=== PATIENT | female | born 1965 | race African-American/Black ===

== ENCOUNTER 2024-02-13 20:29 | Emergency (ER) | payer SELFPAY ==
--- NOTE | 2024-02-13 22:12 | RAD REPORT ---
EXAM DESCRIPTION: Carmine Single View02/13/2024 10:05 pm CLINICAL HISTORY: Hypertension COMPARISON: none FINDINGS: The lungs appear clear of acute infiltrate. The heart is normal size IMPRESSION: No acute abnormalities displayed
[2024-02-13 22:58] LABS: Absolute Lymphocytes (CBC) 1.8 K/uL (0.7-4.9); Absolute Monocytes 0.4 K/uL (0.1-1.3); Absolute Neutrophil 3.1 K/uL (1.8-8.0); Basophils % 0.4 % (0-1.3); Eosinophils % 0.7 % (0-4.4); Hematocrit 36.2 % (36.0-45.0); Hemoglobin 11.8 g/dL (12.0-15.0); Lymphocytes % 33.1 % (15.3-44.8); MCH 28.6 pg (27.0-35.0); MCHC 32.5 g/dL (32.0-36.0); MCV 87.8 fL (80-100); MPV 8.3 fL (7.6-11.3); Monocytes % 7.8 % (3.3-12.3); Platelets 264 thou/uL (152-406); RBC Red Blood Cell Count 4.12 M/uL (3.86-4.86); Red Cell Distribution Width 13.6 % (12.1-15.2)
[2024-02-13 23:05] LABS: Protime INR 1.09
[2024-02-13 23:19] LABS: Anion Gap 5.8 mEq/L (5.0-15.0); Potassium 3.8 mEq/L (3.5-5.1); Troponin High Sensitivity 3.3 pg/mL (<58.9)
[2024-02-13] MEDS ORDERED: METOPROLOL TAR 25 MG TAB ONE (23:59)
[2024-02-14] MEDS ORDERED: ASPIRIN 81 MG CHEWABLE TABLET ONE
--- NOTE | 2024-02-14 00:21 | EDPHYS ---
Physician Documentation [facility] Name: Tonia Leija Age: 58 yrs Sex: Female : 1965 Arrival Date: 02/13/2024 Time: 20:29 Bed 24 Private MD: DANY Physician Josué Mortensen HPI: 02/12 21:50 This 58 yrs old Black Female presents to ER via Ambulatory with complaints of High cp Blood Pressure. 21:50 The patient has elevated blood pressure and discovered this at home, with a home cp device. Onset: The symptoms/episode began/occurred 15 day(s) ago. Associated signs and symptoms: Pertinent negatives: chest pain, dizziness, headache, visual changes, vomiting, weakness. Historical: - Allergies: 20:54 No Known Allergies; al5 - Home Meds: 20:54 None [Active]; al5 - PMHx: 20:54 None; al5 - PSHx: 20:54 None; al5 - Immunization history:: Adult Immunizations up to date. - Infectious Disease History:: Denies. - Social history:: Smoking status: Patient denies any tobacco usage or history of. ROS: 21:55 Constitutional: HX per HPI cp 21:55 Eyes: Negative for visual disturbance, cp 21:55 Cardiovascular: Negative for chest pain, edema, palpitations, 21:55 Respiratory: Negative for cough, shortness of breath, wheezing, 21:55 Abdomen/GI: Negative for abdominal pain, vomiting, diarrhea, constipation, 21:55 Neuro: Negative for altered mental status, headache, numbness, syncope, near syncope, weakness, 21:55 All other systems are negative, Exam: 21:59 Constitutional: The patient appears in no acute distress, alert, awake, comfortable, cp non-diaphoretic, non-toxic, well developed, well nourished, 21:59 Head/Face: Normocephalic, atraumatic. cp 21:59 Eyes: Periorbital structures: appear normal, Pupils: equal, round, and reactive to light and accomodation, Extraocular movements: intact throughout, Sclera: no appreciated abnormality, Lids and lashes: appear normal, bilaterally, 21:59 ENT: External ear(s): are unremarkable, Nose: is normal, Mouth: Lips: moist, Oral mucosa: pink and intact, moist, Posterior pharynx: is normal, airway is patent, no erythema, no exudate, 21:59 Neck: ROM/movement: is normal, is supple, without pain, no range of motions limitations, 21:59 Chest/axilla: Inspection: normal, 21:59 Cardiovascular: Rate: normal, Rhythm: regular, Edema: is not appreciated, JVD: is not appreciated, 21:59 Respiratory: the patient does not display signs of respiratory distress, Respirations: normal, no use of accessory muscles, no retractions, labored breathing, is not present, Breath sounds: are clear throughout, no decreased breath sounds, no stridor, no wheezing, 21:59 Abdomen/GI: Inspection: abdomen appears normal, Bowel sounds: active, all quadrants, Palpation: abdomen is soft and non-tender, in all quadrants, 21:59 Back: pain, is absent, ROM is normal, 21:59 Neuro: Orientation: to person, place \T\ time. Mentation: is normal, Cerebellar function: is grossly normal, Motor: moves all fours, strength is normal, Sensation: is normal, Vital Signs: 20:53 BP 168 / 83; Pulse 84; Resp 16; Temp 97.1(IR); Pulse Ox 100% ; Weight 57.61 kg; Height al5 5 ft. 2 in. ; Pain 8/10; 20:53 Body Mass Index 23.23 (57.61 kg, 157.48 cm) al5 20:53 Pain Scale: Adult al5 MDM: 00:20 Data reviewed: vital signs, nurses notes, lab test result(s), and as a result, I will cp discharge patient. 00:20 I considered the following discharge prescriptions or medication management in the cp emergency department Medications were administered in the Emergency Department. See MAR. Counseling: I had a detailed discussion with the patient and/or guardian regarding the historical points, exam findings, and any diagnostic results supporting the discharge/admit diagnosis, the presence of at least one elevated blood pressure reading (>120/80) during this emergency department visit, lab results, the need for outpatient follow up, for definitive care, a family practitioner, to return to the emergency department if symptoms worsen or persist or if there are any questions or concerns that arise at home. Response to treatment: the patient's symptoms have markedly improved after treatment, and as a result, I will discharge patient. 21:08 Patient medically screened. cp 22:30 Differential diagnosis: hypertensive crisis, Malignant HTN, CVA, intracerebral cp hemorrhage, acute ME, kidney disease. 02/12 21:49 Order name: Basic Metabolic Panel; Complete Time: 23:48 cp 02/12 21:49 Order name: CBC with Diff; Complete Time: 23:48 cp 02/12 21:49 Order name: Magnesium; Complete Time: 23:48 cp 02/12 21:49 Order name: PT-INR; Complete Time: 23:48 cp 02/12 21:49 Order name: Troponin HS; Complete Time: 23:48 cp 02/12 21:49 Order name: XRAY Chest (1 view); Complete Time: 22:47 cp 02/12 22:48 Interpretation: Report review. 02/12 21:49 Order name: EKG; Complete Time: 21:49 cp 02/12 21:49 Order name: Cardiac monitoring 02/12 21:49 Order name: EKG - Nurse/Tech; Complete Time: 23:51 cp 02/12 21:49 Order name: IV Saline Lock; Complete Time: 22:41 cp 02/12 21:49 Order name: Labs collected and sent; Complete Time: 22:41 cp 02/12 21:49 Order name: O2 Per Protocol 02/12 21:49 Order name: O2 Sat Monitoring cp Administered Medications: 21:49 CANCELLED (Physician Discretion): aspirinchewable tablet 324 mg PO once; 81 mg tablets cp x 4 02/13 00:06 Drug: Metoprolol PO 25 mg PO once Route: PO; cg 00:06 Drug: Aspirin PO Chewable Tablet 324 mg PO once; 81 mg tablets x 4 Route: PO; cg 00:52 Drug: Ketorolac IVP 15 mg IVP once Route: IVP; Site: right antecubital; vc1 Disposition Summary: 02/14/24 00:20 Discharge Ordered Notes: Location: Home cp Problem: new cp Symptoms: have improved cp Condition: Stable cp Diagnosis - Hypertensive heart disease without heart failure cp Followup: cp - With: Private Physician - When: 1 week - Reason: Recheck today's complaints Discharge Instructions: - Discharge Summary Sheet cp - Hypertension, Adult cp - Aspirin and Your Heart cp - Form - Blood Pressure Record Sheet cp - How to Take Your Blood Pressure cp Forms: - Medication Reconciliation Form cp - Antibiotic Education cp - Prescription Opioid Use cp - Patient Portal Instructions cp - Leadership Thank You Letter cp Prescriptions: - Voltaren Arthritis Pain 1 % Topical gel - apply 2.25 inch TOPICAL route 4 times per day apply to shoulder as needed for cp pain; 45 gram tube; Refills: 0, Product Selection Permitted - Metoprolol Tartrate 25 mg Oral tablet - take 1 tablet ORAL route 2 times per day with a meal; 30 tablet; Refills: 0, cp Product Selection Permitted Addendum: 02/15/2024 04:15 Co-signature as Attending Physician, Josué Mortensen MD I agree with the assessment and c cabrera plan of care. Signatures: Dispatcher [employer] EDMS Josué Mortensen MD MD cha Page, Corey, PA PA Brigid Hewitt, RN RN cg Wendi Holman RN RN vc1 Brinda Jeong RN RN al5 Corrections: (The following items were deleted from the chart) 02/12 21:49 21:49 Aspirin PO Chewable Tablet 324 mg PO once; 81 mg tablets x 4 ordered. cp cp 21:50 21:49 BASIC METABOLIC PANEL+C.LAB.BRZ ordered. EDMS EDMS 21:50 21:49 CBC+H.LAB.BRZ ordered. EDMS EDMS 21:50 21:49 MAGNESIUM+C.LAB.BRZ ordered. EDMS EDMS 21:50 21:49 PROTIME (+INR)+COAG.LAB.BRZ ordered. EDMS EDMS 21:50 21:49 Troponin High Sensitivity+C.LAB.BRZ ordered. EDMS EDMS
--- NOTE | 2024-02-14 00:21 | ER ---
Nurse's Notes [facility] Name: Tonia Leija Age: 58 yrs Sex: Female : 1965 Arrival Date: 02/13/2024 Time: 20:29 Bed 24 Private MD: Diagnosis: Hypertensive heart disease without heart failure Presentation: 02/12 20:53 Chief complaint: Patient states: High blood pressure over the last 15 days with left al5 arm pain. Pt denies chest pain and shortness of breath. Coronavirus screen: Client denies travel out of the [place] in the last 14 days. At this time, the client does not indicate any symptoms associated with coronavirus-19. Ebola Screen: Patient denies travel to an Ebola-affected area in the 21 days before illness onset. No symptoms or risks identified at this time. Initial Sepsis Screen: Does the patient meet any 2 criteria? No. Patient's initial sepsis screen is negative. Does the patient have a suspected source of infection? No. Patient's initial sepsis screen is negative. Risk Assessment: Do you want to hurt yourself or someone else? Patient reports no desire to harm self or others. Onset of symptoms was February 13, 2024. 20:53 Method Of Arrival: Ambulatory al5 20:53 Acuity: YURY 3 al5 Triage Assessment: 20:54 General: Appears in no apparent distress. comfortable, Behavior is calm, cooperative. al5 Pain: Complains of pain in left arm. Neuro: No deficits noted. Level of Consciousness is awake, alert, obeys commands, Oriented to person, place, time, situation. Historical: - Allergies: 20:54 No Known Allergies; al5 - Home Meds: 20:54 None [Active]; al5 - PMHx: 20:54 None; al5 - PSHx: 20:54 None; al5 - Immunization history:: Adult Immunizations up to date. - Infectious Disease History:: Denies. - Social history:: Smoking status: Patient denies any tobacco usage or history of. Screenin/06 00:55 [facility] ED Fall Risk Assessment (Adult) History of falling in the last 3 months, vc1 including since admission No falls in past 3 months (0 pts) Confusion or Disorientation No (0 pts) Intoxicated or Sedated No (0 pts) Impaired Gait No (0 pts) Mobility Assist Device Used No (0 pt) Altered Elimination No (0 pt) Score/Fall Risk Level 0 - 2 = Low Risk Oriented to surroundings, Maintained a safe environment, Educated pt \T\ family on fall prevention, incl call for assistance when getting out of bed. Abuse screen: Denies threats or abuse. Nutritional screening: No deficits noted. Tuberculosis screening: No symptoms or risk factors identified. Vital Signs: 02/12 20:53 BP 168 / 83; Pulse 84; Resp 16; Temp 97.1(IR); Pulse Ox 100% ; Weight 57.61 kg; Height al5 5 ft. 2 in. ; Pain 8/10; 20:53 Body Mass Index 23.23 (57.61 kg, 157.48 cm) al5 20:53 Pain Scale: Adult al5 ED Course: 20:53 Patient arrived in ED. al5 20:54 Triage completed. al5 20:54 Arm band placed on Patient placed in waiting room. EKG completed in triage. Results al5 shown to MD. 21:03 EKG done, by ED staff, reviewed by Josué Mortensen MD. al5 21:06 Josué Stallings PA is PHCP. cp 21:06 Josué Mortensen MD is Attending Physician. cp 22:07 XRAY Chest (1 view) In Process Unspecified. EDMS 22:41 Initial lab(s) drawn, by me, sent to lab. Inserted saline lock: 22 gauge in right ty antecubital area, using aseptic technique. Blood collected. Administered Medications: 21:49 CANCELLED (Physician Discretion): aspirinchewable tablet 324 mg PO once; 81 mg tablets cp x 4 02/13 00:06 Drug: Metoprolol PO 25 mg PO once Route: PO; cg 00:06 Drug: Aspirin PO Chewable Tablet 324 mg PO once; 81 mg tablets x 4 Route: PO; cg 00:52 Drug: Ketorolac IVP 15 mg IVP once Route: IVP; Site: right antecubital; vc1 Outcome: 00:20 Discharge ordered by MD. cp 00:55 Patient left the ED. vc1 Signatures: Dispatcher [employer] EDMS Josué Stalligns PA PA cp Garcia, Cindy, RN RN cg Calcote, Vanessa, RN RN vc1 Yandell, Tarun ty Langhorst, Brinda, RN RN al5
[2024-02-14] MEDS ORDERED: KETOROLAC 30 MG/ML INJ ONE (00:43)
[2024-02-14 01:21] VITALS: BP 168/83; TEMP 97.1; O2SAT 100
--- NOTE | 2024-02-18 12:19 | EKG ---
Test Date: 2024-02-13 Test Time: 21:02:59 Police Judge: JOSUÉ MEASUREMENT RESULTS: Intervals: Rate: 83 VT: 140 QRSD: 74 QT: 364 QTc: 427 [place]: P: 71 VT: 140 QRS: 73 T: 55 INTERPRETIVE STATEMENTS: Normal sinus rhythm Possible Left atrial enlargement Borderline ECG No previous ECG available for comparison Electronically Signed On 02-18-24 12:14:20 CDT by Aravind Packer
== END 2024-02-14 00:55 | disposition home or self-care (01) ==
LOC: ER 20:29
DX: I11.9 Hypertensive heart disease without heart failure (principal)
CPT/HCPCS: 36415; 71045; 80048; 83735; 84484; 85025; 85610; 93005; 96374; 99284